=== PATIENT | male | born 1955 | race Caucasian/White ===

== ENCOUNTER 2017-01-31 19:03 | Inpatient (IN) | payer BC ==
[~2017-01-31] VITALS: Ht 193 cm; Wt 100.0 kg
--- NOTE | ~2017-01-31 | CO ---
Unit #: [id number] #: [id number] Patient: TAMIKA WHITESIDE [id number] [address] [address] [id number] I MR#: [id number] NAME: TAMIKA WHITESIDE ROOM: 472 Age: 61 Sex: M Admission Date: 01/31/2017 : 1955 Attending Physician: Arian Mojica M.D. Consultation Date: 02/01/2017 CONSULTATION REPORT CHIEF COMPLAINT Postoperative fever. HISTORY OF PRESENT ILLNESS This 61-year-old male underwent left foot surgery by me on 01/28/2017. 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 The patient noted that he had a fever as high as 102 on Wednesday and Wednesday and came to the emergency room and was admitted with suspected postoperative foot infection. He was placed on Zosyn and vancomycin. PAST MEDICAL HISTORY 1. Diabetes. 2. Hypertension. 3. Parathyroidectomy. 4. Obesity. 5. Diabetic neuropathy. 6. Neuropathic foot wound ulceration. PAST SURGICAL HISTORY 1. Previous left foot surgery. 2. Parathyroidectomy. 3. Colonoscopy. 4. Heart ablation. 5. Discectomy. 6. Tonsillectomy. 7. Knee arthroscopy. 8. Umbilical hernia repair. ALLERGIES Sulfa. HOME MEDICATIONS 1. Vitamins. 2. Fish oil. 3. Toprol. 4. Victoza. 5. Vitamin B12. 6. Metformin. 7. Percocet. 8. Keflex. PHYSICAL EXAMINATION Unit #: [id number] #: [id number] Patient: TAMIKA WHITESIDE GENERAL: The patient is alert, oriented and awake. He has minimal discomfort. His left foot dressing is intact. VITALS: Temperature 99.1, blood pressure 145/81, pulse 76, respiratory rate 18. EXTREMITIES: Evaluation of the left foot demonstrates all the incisions to be clean and dry. There is moderate swelling as would be expected. The second toe has one small fracture blister dorsally. There is no evidence of ascending cellulitis. There is no significant wound drainage. The neurovascular exam is unchanged from preoperative status. DIAGNOSTIC STUDIES LABORATORY: CBC shows hemoglobin 12.7, white blood cell count 10.3, chem. 7 is normal with the exception of potassium 2.9. C-reactive protein is elevated at 17.4, as would be expected postoperative. ASSESSMENT 1. Postoperative fever, postoperative day two, most likely secondary to atelectasis. 2. No evidence of postoperative wound infection. PLAN 1. Incentive spirometry. 2. Discontinue his IV antibiotics. 3. Can be discharged home when his potassium is normalized. 4. Follow up as ordered previously in my office in 10-14 days. Dictated by.Nnamdi Grant/tory TD: 02/01/2017 11:11 JOB #: [id number] CONSULTATION REPORT Page 1 of 1 X Sonia Lee MD X CONSULTATION REPORT
--- NOTE | ~2017-01-31 | HP ---
Unit #: [id number] #: [id number] Patient: TAMIKA WHITESIDE [id number] [facility]. [place], [place] [address] [id number] I MR#: [id number] NAME: TAMIKA WHITESIDE ROOM: 47 Age: 61 Sex: M Admission Date: 01/31/2017 : 1955 Attending Physician: Aimee Coombs M.D. HISTORY AND PHYSICAL REASON FOR ADMISSION Transfer from outside facility secondary to left wound infection/foot infection. HISTORY OF PRESENT ILLNESS The patient is a very pleasant, 61-year-old male who recently underwent left foot surgery on 01/28/[address] Lee at [facility] during postoperative care. He was instructed not to disturb the wound dressings; however, he developing an acute rise in temperature, fevers and chills. He began taking Tylenol and ibuprofen as directed. He became concerned and therefore, presented to [facility] for evaluation. Dr. Raul Cuevas evaluated the wound at the outside facility, felt as though it was more consistent with cellulitis, as well as postoperative infection and therefore, decision was made for transfer to [facility] for evaluation. PAST MEDICAL HISTORY 1. Recent foot surgery, left foot, 01/28/[address] Lee. 2. Hypertension. 3. Diabetes with no insulin dependence. 4. Previous left foot surgery, 2016. 5. Parathyroidectomy. 6. Prior history of colonoscopy. 7. Prior history of heart ablation. 8. Vasectomy. 9. Tonsillectomy, 10. Arthroscopy of knee. 11. Umbilical hernia repair. FAMILY HISTORY Reviewed, noncontributory, and nonpertinent. SOCIAL HISTORY No tobacco use. No substance abuse. Social alcohol. Patient states approximately two beers on a daily basis. REVIEW OF SYSTEMS Please see HPI. Twelve point otherwise negative except for those positive and noted in the HPI. PHYSICAL EXAMINATION VITAL SIGNS: Temperature outside facility 100 degrees, pulse 91, respiratory rate 18, and blood pressure 162/92. GENERAL APPEARANCE: Patient is comfortable in no acute distress. Unit #: [id number] #: [id number] Patient: TAMIKA WHITESIDE HEAD: Atraumatic and normocephalic. EARS: Tympanic membranes do not reveal any erythema or injection. NECK: Supple. CARDIOVASCULAR: S1 and S2 without murmur. RESPIRATORY: Clear. GASTROINTESTINAL/ABDOMEN: Distention noted but nontender. LOWER EXTREMITIES: No calf tenderness. No erythema. Carranza sign negative left lower extremity. Left foot is currently dressed. From ER report, I can elicit left foot swelling is noted, tender to touch, as well as erythema was noted. I did not remove dressings as per direction, by patient, as well as Dr. Lee's postop instructions. NEUROLOGIC: Patient alert and oriented x3. No evidence of any focal nerve deficits. PSYCHIATRIC: Patient demonstrates normal mood and affect. DIAGNOSTIC STUDIES LABORATORY STUDIES: Outside laboratory studies show a white count of 10.9, sodium 135, potassium 2.8. INITIAL ADMISSION DIAGNOSIS 1. Left foot postoperative cellulitis. 2. Recent left foot surgery. 3. Hypokalemia. 4. Fever. 5. Hypertension. 6. Diabetes, noninsulin dependent. 7. Chronic osteoarthritis. 8. Morbid obesity. PLAN Admission to telemetry floor. Dr. Lee consultation. ID consultation. Blood cultures, probable wound culture but I will defer that decision to Dr. Lee. Symptom management. Pain control. IV vancomycin. IV Zosyn. Blood pressure management. NPO absolute status until evaluated by Dr. Lee in a.m. Accu-Cheks q. a.c. and q.h.s. Low dose NovoLog sliding scale insulin. Plans have been reviewed with patient in detail. His is present at bedside. Both parties express understanding and agreement. Patient is full code. Dictated by Nnamdi Cade/ab TD: 02/01/2017 05:11 JOB #: [id number] Unit #: [id number] #: [id number] Patient: TAMIKA WHITESIDE HISTORY AND PHYSICAL Page 1 of 1 X Elvie Rosales MD HISTORY AND PHYSICAL
--- NOTE | ~2017-01-31 | CO ---
Unit #: [id number] #: [id number] Patient: TAMIKA KRISHNA [id number] [address] [place], [place] [address] [id number] I MR#: [id number] NAME: TAMIKA KRISHNA ROOM: 472 Age: 61 Sex: M Admission Date: 01/31/2017 : 1955 Attending Physician: Arian Mojica M.D. CONSULTATION REPORT REFERRING PHYSICIAN Dr. Rosales. REASON FOR CONSULTATION Left foot cellulitis. HISTORY OF PRESENT ILLNESS Mr. Krishna is a pleasant 61-year-old gentleman, who recently underwent a left foot surgery on this past Wednesday by Dr. Lee at [facility]. He did well postoperatively but when he went home for the next two days he started having fevers, spiking fevers and temperatures as high as 102 on Wednesday and which his called the on-call answering service and said to just monitor it. On Wednesday, he continued to have temperatures around 100 and 101, for which he was taking Excedrin as well as ibuprofen. He was then instructed to come into the emergency room. He went into [facility] where he was then transferred here for concerns for ongoing left foot infection. He denies any chest pain, shortness of air, dysuria, nausea, vomiting, diarrhea. Denies any new rashes or skin lesions. His left foot, per his denied any streaking or any odor or any change in pain or intense pain. Complaints of swelling as well as some redness around the site. Patient was evaluated by ortho this morning. We are being asked to see the patient for antibiotic management. He has been started on vancomycin and Zosyn. PAST MEDICAL HISTORY 1. Recent foot surgery. 2. Hypertension. 3. Diabetes. 4. Last surgery in 2016. 5. Parathyroidectomy. 6. History of colonoscopy. 7. History of heart ablation. 8. Vasectomy. 9. Tonsillectomy. 10. Arthroscopy of the knee. 11. Umbilical hernia repair. FAMILY HISTORY Noncontributory. SOCIAL HISTORY No tobacco use. No substance abuse. Social alcohol use. Unit #: [id number] #: [id number] Patient: TAMIKA KRISHNA REVIEW OF SYSTEMS All negative except for those stated in HPI. PHYSICAL EXAMINATION GENERAL: Awake, alert, oriented, and talkative. VITAL SIGNS: No fever since admission. Temperature 99.1, heart rate 76, respirations 18, blood pressure 145/81. NECK: Supple. CARDIOVASCULAR: Regular rate. PULMONARY: Nonlabored. Clear to auscultation. No abnormal breath sounds. GASTROINTESTINAL: Soft, nontender. Positive bowel sounds. SKIN: Left foot in brace. Toes are movable. Dressing in place. Left leg with no erythema or edema. Pins in toes. DIAGNOSTIC STUDIES LABORATORY: Glucose 113, creatinine 1, sodium 139, potassium 2.9. CRP 17.4. White count is 10.3, hemoglobin 12.7, platelets 195,000. Sed rate is 44. CRP 17.4. ASSESSMENT AND PLAN Possible left foot cellulitis: Per ortho, appears to doubt any type of postoperative wound infection. Suspect that CRP and sed rate elevation most likely related to surgery. Fevers may be related to postoperative temperatures. The patient has remained afebrile since admission. Patient was on p.o. Keflex per surgical protocol, may be able to continue that at home. Although at this point, will continue Zosyn and vancomycin and await for Dr. Calderon's evaluation. Patient is clinically stable and in no apparent distress. No additional plans from ortho. Will try to discuss. No additional plans from ortho. Will try to discuss. Monitor temperature. Further recommendations to come from Dr. Calderon. Thank you for consultation. Dictated by... Robyn Kwan APRN for Nnamdi Mendosa/racquel TD: 02/01/2017 09:56 JOB #: [id number] CONSULTATION REPORT Page 1 of 1 X X CONSULTATION REPORT
--- NOTE | ~2017-01-31 | DS ---
Unit #: [id number] #: [id number] Patient: TAMIKA WHITESIDE [id number] [address] [place], [place] [address] [id number] I MR#: [id number] NAME: TAMIKA WHITESIDE ROOM: 472 Age: 61 Sex: M Admission Date: 01/31/2017 : 1955 Discharge Date: 02/01/2017 Attending Physician: Arian Mojica M.D. DISCHARGE SUMMARY PERTINENT HISTORY AND HOSPITAL COURSE The patient is a 61-year-old man who underwent left foot surgery on 01/28/2017. The patient developed fever over the weekend and presented to the emergency room. He was started on IV empiric antibiotics on suspicion of left foot cellulitis, which was further evaluated by orthopedics, which did not demonstrate any signs of cellulitis or abscess. During his admission he was noted to have hypokalemia with potassium of 2.9. He received a total of 60 mEq of potassium replacement. During his admission his vitals were stable. No recurrence of fever. The patient will be discharged today. DISCHARGE DIAGNOSES 1. Hypokalemia with potassium of 2.9. 2. Fever, likely secondary to atelectasis postoperative with resolution. 3. Hypertension. 4. Diabetes mellitus. DISCHARGE MEDICATIONS 1. Metformin 1,500 mg p.o. at bedtime. 2. Amlodipine 10 mg p.o. daily. 3. Metoprolol XL 100 mg p.o. at bedtime. 4. Hydrochlorothiazide 25 mg p.o. daily. 5. Losartan 100 mg p.o. daily. 6. [place] 3 fish oil 1,000 mg p.o. daily. 7. Multivitamin tab 1 p.o. daily. 8. Aspirin 325 mg p.o. daily. 9. Vitamin B12 - 1,000 mcg p.o. daily. 10. Vitamin D3 - 2,000 units p.o. daily. 11. Victoza 1.2 mg subcu every morning. 12. Keflex 500 mg p.o. b.i.d. to complete the course of previously prescribed treatment. 13. Potassium chloride 20 mEq p.o. once daily. DISCHARGE INSTRUCTIONS 1. Lab tests - Basic metabolic panel and magnesium level recommended for 02/05/2017 for followup of potassium level and magnesium level. 2. Follow up with primary care physician as outpatient. 3. Follow up with orthopedist as outpatient. 4. 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 Unit #: [id number] #: [id number] Patient: TAMIKA WHITESIDE Dictated by... Nnamdi Howell TD: 02/02/2017 10:59 JOB #: [id number] DISCHARGE SUMMARY Page 1 of 1 X X DISCHARGE SUMMARY
[2017-02-01] MEDS ORDERED: CENTRUM SILVER PO (02:21)
[2017-02-01] MEDS ORDERED: FISH OIL 1,0001 EAC4 PO (02:21)
[2017-02-01] MEDS ORDERED: TOPROL XL100 MG PO (02:22)
[2017-02-01] MEDS ORDERED: VICTOZA0.6 MG/0.1 SUBQ (02:23)
[2017-02-01] MEDS ORDERED: VITAMIN D32000 UNIT PO (02:27)
[2017-02-01] MEDS ORDERED: VITAMIN B122500 MC1 PO (02:27)
[2017-02-01] MEDS ORDERED: NORVASC PO (02:28)
[2017-02-01] MEDS ORDERED: COATED ASPIRIN325 M1 PO (02:29)
[2017-02-01] MEDS ORDERED: LOSARTAN POTAS100 MG PO (02:31)
[2017-02-01] MEDS ORDERED: HYDROCHLOROTHIA25 MG PO (02:31)
[2017-02-01] MEDS ORDERED: METFORMIN HCL500 M1 PO (02:32)
[2017-02-01 06:12] LABS: HEMOGLOBIN 12.7 gm/dL (13.0-16.0); MEAN CELL VOLUME 90.2 FL (83-96); MEAN CORPUSCULAR HEMOGLOBIN 30.9 PG (28-34); MEAN CORPUSCULAR HGB CONC 34.2 g/dL (30-36); MEAN PLATELET VOLUME 8.9 FL (6.5-11.5); RED BLOOD COUNT 4.1 X10e (3.90-5.60); WHITE BLOOD COUNT 10.3 X10e3 (4.0-10.5)
[2017-02-01 06:36] LABS: CALCIUM SERUM 8.8 mg/dL (8.4-10.2); GLOM FILT RATE Estimated 80.9 mL/min (>60)
[2017-02-01 06:41] LABS: POTASSIUM 2.9 mmol/L (3.5-5.1)
[2017-02-01] MEDS ORDERED: KEFLEX500 MG PO (15:01)
[2017-02-01] MEDS ORDERED: KCL PO (15:02)
[2017-02-01] MEDS ORDERED: NOVOLOG100 UNITS/ SUBQ (15:19)
== END 2017-02-01 15:50 | disposition home or self-care (01) | DRG 206 ==
LOC: C4C 19:03 → UNDOADMIN 19:03 → C4C 23:45
PROVIDERS: Family Medicine
DX: J95.89 Other postprocedural complications and disorders of respiratory system, not elsewhere classified (principal); E66.01 Morbid (severe) obesity due to excess calories; I10 Essential (primary) hypertension; J98.11 Atelectasis; E87.6 Hypokalemia; Y83.9 Surgical procedure, unspecified as the cause of abnormal reaction of the patient, or of later complication, without mention of misadventure at the time of the procedure; E11.9 Type 2 diabetes mellitus without complications; Z79.84 Long term (current) use of oral hypoglycemic drugs; M19.90 Unspecified osteoarthritis, unspecified site; Z88.2 Allergy status to sulfonamides
CPT/HCPCS: 80048; 82947; 83036; 85027; 85652; 86140; J2543; J3370